=== PATIENT | female | born 1970 | race Caucasian/White ===

== ENCOUNTER 2019-09-26 12:48 | Outpatient (CLI) | payer BC, SELFPAY ==
--- NOTE | 2019-09-26 12:56 | MM_ITS ---
WS: [id number] BILATERAL SCREENING DIGITAL MAMMOGRAM WITH CAD HISTORY: SCREENING COMPARISON: 08/31/2018, 07/25/2016, 02/18/2010. Bilateral CC and MLO views submitted. Computer aided detection analyzed. Breast composition: There are scattered areas of fibroglandular density. There are 3 asymmetries in t he RIGHT breast which need further evaluation. Central to the nipple on the CC projection is a 6 mm o void nodule which may have been present in 2017 but has increased in size. Irregular asymmetry in the lateral RIGHT breast on the CC projection. There are 2 asymmetries in the superior RIGHT breast on t he MLO. Spot compression views in all these areas are recommended. Biopsy clip central to the LEFT ni pple. RIGHT breast: Spot compression views (CC and MLO). True ML. Ultrasound to follow if abnormality persi sts. MM/[place] [id number] IMPRESSION: BI-RADS: 0-Incomplete: Need additional imaging evaluation FOLLOW UP: Need Additional Imaging
== END 2019-09-26 12:49 | disposition home or self-care (01) ==
LOC: RADSHAW 12:50
PROVIDERS: Visit Provider Nurse Practitioner Family
DX: Z12.31 Encounter for screening mammogram for malignant neoplasm of breast (principal); N64.89 Other specified disorders of breast
CPT/HCPCS: 77067

== ENCOUNTER 2019-12-12 10:26 | Outpatient (CLI) | payer BC, SELFPAY ==
--- NOTE | 2019-12-12 10:45 | US_ITS ---
WS: [id number] ADDITIONAL VIEWS RIGHT BREAST RIGHT breast ultrasound, limited HISTORY: RIGHT breast masses x2. COMPARISON: 09/26/2019, 08/31/2018 and 06/11/2016 Compression views right CC and MLO projection. True ML also submitted. Lobulated 6 mm nodule at a middle depth RIGHT breast is probably near the 12-1 o'clock axis. Persists with additional imaging. The asymmetry in the upper outer quadrant also persists but is less masslik e. May be a benign asymmetry. RIGHT breast ultrasound, limited. At 10:00 there is a hypoechoic nodule measuring 6 x 2 x 3 mm without increased vascularity. This nodu le is slightly ovoid in shape and corresponds to the mammographic abnormality. At 12:00 there is an ill-defined hypoechoic nodule measuring 5 x 3 x 5 mm. Margins are slightly irreg ular. This corresponds to the mammographic abnormality. These nodules are very small and indeterminant. As neither of these were definitely present on prior studies from 2012 additional evaluation is recommended. Ultrasound-guided biopsy recommended of the 10:00 and 12:00 hypoechoic areas in the RIGHT breast. Low level suspicion but neither of these areas were present in 2012. US/US breast RT limited* [id number] IMPRESSION: BI-RADS: 4-Suspicious Finding-Biopsy Should Be Considered FOLLOW-UP: Biopsy Recommended
== END 2019-12-12 10:27 | disposition home or self-care (01) ==
PROVIDERS: Visit Provider Nurse Practitioner Family
DX: N64.89 Other specified disorders of breast (principal); N63.11 Unspecified lump in the right breast, upper outer quadrant
CPT/HCPCS: 76642; 77065

== ENCOUNTER 2021-03-12 09:43 | Outpatient (CLI) | payer BC, SELFPAY ==
--- NOTE | 2021-03-12 09:53 | MM_ITS ---
WS: [id number] BILATERAL DIGITAL SCREENING MAMMOGRAPHY WITH CAD CLINICAL INFORMATION: SCREENING HISTORY: Screening mammogram. No current complaints. COMPARISON: September 26, 2019 TECHNIQUE: Bilateral CC and MLO views. FINDINGS: Scattered fibroglandular densities bilaterally. Previously described asymmetries in the right breast are persistent but less prominent today. Small nodules in these areas were described on the prior ult rasound at 10:00 and 12:00. Biopsy was previously recommended. Recommend right diagnostic mammography and ultrasound for comparison to December 12, 2019 Biopsy clip left breast with adjacent stable focal asymmetry. Left breast is unchanged. MM/[place] [id number] IMPRESSION: BI-RADS: 0-Incomplete: Need additional imaging evaluation FOLLOW UP: Need Additional Imaging RECOMMENDATION RIGHT DIAGNOSTIC MAMMOGRAPHY AND ULTRASOUND
== END 2021-03-12 09:44 | disposition home or self-care (01) ==
LOC: RADSHAW 09:48
PROVIDERS: PCP Nurse Practitioner Family; Visit Provider Nurse Practitioner Family
DX: Z12.31 Encounter for screening mammogram for malignant neoplasm of breast (principal)
CPT/HCPCS: 77067

== ENCOUNTER 2021-05-08 13:23 | Outpatient (CLI) | payer BC, SELFPAY ==
--- NOTE | 2021-05-08 13:30 | US_ITS ---
WS: [id number] RIGHT DIGITAL MAMMOGRAPHY WITH CAD CLINICAL INFORMATION: RT BREAST ASYMMETRY X 2 COMPARISON: March 12, 2021 and December 12, 2019 TECHNIQUE: 3 views of the right breast were obtained. FINDINGS: Scattered fibroglandular densities of the right breast. Previously described asymmetries in the right breast are again seen similar to the prior examination. ULTRASOUND BREAST RIGHT TECHNIQUE: Ultrasound right breast focused area of concern. CLINICAL INFORMATION: RT BREAST ASYMMETRY X 2 FINDINGS: Ultrasound right breast at 10:00 position. This hypoechoic nodule is stable in appearance compared to December 12, 2019. This measures approximately 2.4 x 2.2 x 3.6 mm. Previously described lesion at the 12:00 position is not visualized today. US/US breast RT limited* [id number] IMPRESSION: BI-RADS: 3-Probably Benign FOLLOW UP: 6 Month Follow-up RECOMMEND 6 MONTH FOLLOW-UP RIGHT DIAGNOSTIC MAMMOGRAPHY AND ULTRASOUND TO CONF IRM STABILITY.
== END 2021-05-08 13:24 | disposition home or self-care (01) ==
LOC: RADSHAW 13:28
PROVIDERS: PCP Nurse Practitioner Family; Visit Provider Nurse Practitioner Family
DX: N64.89 Other specified disorders of breast (principal); N63.11 Unspecified lump in the right breast, upper outer quadrant
CPT/HCPCS: 76642; 77065

== ENCOUNTER → 2021-11-25 11:41 | Outpatient (BNVA) | payer BC, SELFPAY | PROVIDERS: PCP Nurse Practitioner Family; Visit Provider Obstetrics & Gynecology | DX: N93.9 Abnormal uterine and vaginal bleeding, unspecified (principal) | CPT/HCPCS: 82306; 82728; 83001; 83002; 84439; 84443; 84480; 84481; 84482; 85025; 86376; 86800 ==

== ENCOUNTER 2022-08-22 13:33 | Outpatient (CLI) | payer OTHER, SELFPAY ==
--- NOTE | 2022-08-22 13:47 | MM_ITS ---
WS: [id number] BILATERAL 3D TOMOSYNTHESIS DIGITAL DIAGNOSTIC MAMMOGRAPHY WITH CAD CLINICAL INFORMATION: 6MFU HISTORY: Six-month follow-up COMPARISON: May 08, 2021 March 12, 2021 TECHNIQUE: Bilateral CC, MLO, and ML views. FINDINGS: Scattered fibroglandular densities bilaterally. Previously described asymmetry is in the RIGHT breast are similar in appearance to previous. No new suspicious findings. LEFT breast is unremarkable. Stable LEFT breast biopsy marker. Ultrasound RIGHT breast described below. ULTRASOUND BREAST RIGHT TECHNIQUE: Ultrasound right breast focused area of concern. CLINICAL INFORMATION: 6MFU COMPARISON: 2021 FINDINGS: Ultrasound RIGHT breast the 10:00 position also including the upper outer quadrant. No evidence of cy stic or solid mass. No suspicious lesions visualized today. Previously described small hypoechoic les ion is no longer visualized. Recommend return to annual screening mammography. MM/[place] [id number] IMPRESSION: BI-RADS: 2-Benign FOLLOW UP: 1 Year Follow-up Recommend return to annual screening mammography.
== END 2022-08-22 13:34 | disposition home or self-care (01) ==
PROVIDERS: PCP Nurse Practitioner Family; Visit Provider Nurse Practitioner Women's Health
DX: R92.8 Other abnormal and inconclusive findings on diagnostic imaging of breast (principal)
CPT/HCPCS: 76642; 77062; G0279

== ENCOUNTER 2023-08-24 11:57 | Outpatient (CLI) | payer OTHER, SELFPAY ==
--- NOTE | 2023-08-24 12:13 | MM_ITS ---
WS: [id number] BILATERAL 3D TOMOSYNTHESIS DIGITAL SCREENING MAMMOGRAPHY WITH CAD CLINICAL INFORMATION: SCREENING HISTORY: Screening mammogram. No current complaints. COMPARISON: 2022 TECHNIQUE: Bilateral CC and MLO views. FINDINGS: Scattered fibroglandular densities bilaterally. No suspicious focal mass, asymmetry, calcifications, or architectural distortion. No evidence of malignancy. Biopsy clip LEFT breast MM/[place] [id number] IMPRESSION: BI-RADS: 2-Benign FOLLOW UP: 1 Year Follow-up Recommend return to annual screening mammography.
== END 2023-08-24 11:58 | disposition home or self-care (01) ==
LOC: RAD 11:57
PROVIDERS: PCP Nurse Practitioner Family; Visit Provider Nurse Practitioner Family
DX: Z12.31 Encounter for screening mammogram for malignant neoplasm of breast (principal)
CPT/HCPCS: 77063; 77067

== ENCOUNTER 2024-10-31 13:12 | Outpatient (CLI) | payer OTHER, SELFPAY ==
--- NOTE | 2024-10-31 13:16 | MM_ITS ---
WS: [id number] BILATERAL 3D TOMOSYNTHESIS DIGITAL SCREENING MAMMOGRAPHY WITH CAD CLINICAL INFORMATION: SCREENING HISTORY: Screening mammogram. No current complaints. COMPARISON: 2023 TECHNIQUE: Bilateral CC and MLO views. FINDINGS: Scattered fibroglandular densities bilaterally. No suspicious focal mass, asymmetry, calcifications, or architectural distortion. No evidence of malignancy. Biopsy clip LEFT breast MM/MM scr BI tomosynthesis [id number] IMPRESSION: DENSITY: There are scattered areas of fibroglandular density. BI-RADS: 2 - Benign. FOLLOW UP: 1 Year Follow-up Recommend return to annual screening mammography.
== END 2024-10-31 13:13 | disposition home or self-care (01) ==
LOC: RAD 13:13
PROVIDERS: PCP Nurse Practitioner Family; Visit Provider Nurse Practitioner Family
DX: Z12.31 Encounter for screening mammogram for malignant neoplasm of breast (principal); R92.323 Mammographic fibroglandular density, bilateral breasts; Z97.8 Presence of other specified devices
CPT/HCPCS: 77063; 77067

== ENCOUNTER 2025-03-27 17:47 | Emergency (ER) | payer OTHER, SELFPAY ==
[2025-03-27 17:51] VITALS: BP 98/73; PULSE 86; TEMP 36.6; O2SAT 98; BMI 26.6
--- NOTE | 2025-03-27 19:41 | ED_ITS ---
HPI - Skin/Abscess/Foreign Bdy General: Chief complaint: Skin/Abscess/Foreign Body Stated complaint: had stitches removed today, incision is opening up Time Seen by Provider: 03/27/25 19:37 Source: patient Mode of arrival: ambulatory Limitations: no limitations History of Present Illness: Patient is a 54-year-old female presents to ED today with a complaint of wound dehiscence. Patient states a few weeks ago she had a melanoma spot removed by Dr. Mixon at the [facility] in [facility]. Patient states she had her follow-up appointment today and had her sutures removed. Patient states later this evening she noticed that the wound dehisced. She states the area has otherwise been healing well and has not noticed any surrounding redness, warmth, discharge. MD complaint: other (Wound dehiscence) Onset (ago): hour(s) Tetanus up to date: yes Location: buttocks Severity: mild Relieving factors: none Exacerbating factors: none Associated symptoms: Reports no associated symptoms Treatments prior to arrival: none Related Data Previous Rx's ?Medication ?Instructions ?Recorded amoxicillin 875 mg-potassium 1 tab PO BID #10 tabs 12/12 clavulanate 125 mg tablet Allergies Allergy/AdvReac Type Severity Reaction Status Date / Time No Known Allergies Allergy Verified 03/27/25 17:58 Review of Systems Skin/Breast: Reports: other (wound dehiscence to left hip/buttock wound) Physical Exam Skin: NARRATIVE SKIN EXAM: Wound dehiscence noted to left hip/buttock wound. Wound dehiscence primarily affects the middle portion of the wound but does affect approximately 70% of the total wound. Procedures Laceration Laceration 1: Site: lower extremity Side (If applicable): left Size (cm): 3.0 Description: linear Depth: simple, single layer Local Anesthetic: lidocaine 1% and with epi Amount of anesthesia used (mL): 5.0 Pre-repair: wound explored and irrigated extensively Skin layer closed with: nylon Size (cm): 4-0 Number of sutures: 7 Technique: simple, interrupted Course Consultations: Consultation #1: Spoke to patient's surgeon Dr. Mixon who recommends thorough cleaning with betadine and can replace interrupted nylon sutures. Prophylactic antibiotics with Augmentin for 5 days. She will have her office reach out to patient tomorrow. Vital Signs: Vital signs: Vital Signs Temperature 97.8 F 03/27/25 17:51 Pulse Rate 83 03/27/25 20:30 Blood Pressure 104/59 03/27/25 20:30 Pulse Oximetry 95 03/27/25 20:30 Oxygen Delivery Me thod Room Air 03/27/25 20:17 MDM - Skin/Abscess/Foreign Bdy Medicial Decision Making Patient here for wound dehiscence that occurred after she had sutures removed by her surgeon this morning after they removed a melanoma spot near her left hip/buttock. I did speak to her surgeon who recommended thorough cleaning, replacing sutures, and placing her on prophylactic antibiotics. Medical Records I reviewed the patient's medical records. No radiology studies performed this visit Discharge Plan Discharge Patient Disposition: Home Clinical Impression: Dehiscence of wound Condition: Stable Prescriptions: New amoxicillin-pot clavulanate 875-125 mg tablet 1 tab PO BID Qty: 10 0RF Discharge Orders: Discharge ED (Routine); Ordered 03/27/25 Ordered By: Rosemary El Referrals: Theresa Joiner FNP [Primary Care Provider, Unknown] Patient Instructions: Patient Portal & Manisha Instructions Activity Restrictions/Additional Instructions: As we discussed, surgeon said their office would reach out to you tomorrow morning to set you up with a follow-up appointment. Please fill your antibiotics tomorrow and take them as directed. Monitor wound for redness, worsening pain, surrounding warmth, discharge, or any other concerns you may have. Please seek medical reevaluation if these occur. Print Language: South African Coding Level of Care Code ED National Sales Manager for Zaina Ramsey
[2025-03-27 20:17] VITALS: BP 105/53; PULSE 77; O2SAT 97
[2025-03-27] MEDS: lidocaine-epi 1% 20 mL INJ INJECTION (20:23)
[2025-03-27 20:30] VITALS: BP 104/59; PULSE 83; O2SAT 95
[2025-03-27 20:49] VITALS: BP 100/66; PULSE 82; O2SAT 95
--- OUTSIDE RECORDS SUMMARY | 2025-03-27 21:33 | XMS_ITS | Clinical Summary ---
Author Organization [facility] Address [address] [place] [address] Care Team Providers Care Color Print Inspector Name Role Phone Chantel Hampton DO Primary Care Provider Allergies No known active allergies Medications ferrous sulfate 325 mg (65 mg iron) tabletIndicatio ns:Iron deficiency anemia due to chronic blood loss Take 1 Tablet (325 mg) by mouth daily. 90 Tablet 4 07/15/2021 Active phentermine (ADIPEX P) 37.5 mg tabletIndicatio ns:Weight gain Take 1 Tablet (37.5 mg) by mouth daily before breakfast. 30 Tablet 2 07/15/2021 Active ergocalciferol (VITAMIN D2) 50,000 unit capsuleIndicati ons:Vitamin D deficiency TAKE 1 TAB WEEKLY FOR 8 WEEKS THEN TAKE TWICE MONTHLY AFTER THAT. 2 Capsule 10/02/2022 Active Active Problems No known active problems Family History Medical History Relation Name Comments Diabetes Sister sister Relation Name Status Comments Brother Alive Daughter Alive Father Alive Mother Alive Sister sister Alive Son 1 Alive Son 2 Alive Social History Tobacco Use Types Packs/Day Years Used Date Smoking Tobacco: Light Smoker Cigarettes 0 Last attempted t o quit: 04/20/2010 Smokeless Tobacco: Never Alcohol Use Standard Drinks/Week Comments Yes 1 (1 standard drink = 0.6 oz pur e alcohol) Comments Unknown Sex and Gender Information Value Date Recorded Sex Assigned at Not on file 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 Gender Identity Not on file Sexual Orientation Not on file Last Filed Vital Signs Vital Sign Reading Time Taken Comments Blood Pressure 118/70 07/09/2021 1:03 PM CDT Pulse 106 07/09/2021 1:03 PM CDT Temperature 36.7 C (98 F) 07/09/2021 1:03 PM CDT Respiratory Rate 16 08/31/2017 1:05 PM CDT Oxygen Saturation 95% 07/09/2021 1:03 PM CDT Inhaled Oxygen Concentration - - Weight 90.3 kg (199 lb 2 oz) 07/09/2021 1:03 PM CDT Height 170.2 cm (5' 7 ) 07/09/2021 1:03 PM CDT s tated Body Mass Index 31.19 07/09/2021 1:03 PM CDT Plan of Treatment Health Maintenance Due Date Last Done Comments DTAP/TDAP/TD VACCINES (1 - Tdap) 1988 HEPATITIS B VACCINES (1 of 3 - 19+ 3-dose series) 03/20 HPV/Cotest (21-29) 1990 CERVICAL CANCER SCREENING 1999 HPV/Cotest (30-65) 1999 PAP SMEAR 1999 BREAST CANCER SCREENING 2009 COLORECTAL SCREENING 2014 FIT/FOBT Q 1 year 2014 Flex Sig/CT Colonography Q 5 years 2014 ZOSTER VACCINE (1 of 2) 2019 Preventative Visit- Commercial 04/20/2024 07/09/2021 Colorectal Cancer Screening 07/20/2024 FIT-DNA Q 3 years 07/20/2024 07/20/2021 INFLUENZA VACCINE (#1) 2024 Procedures Procedure Name Priority Date/Time Associated Diagnosis Comments COLON CANCER SCREEN, STOOL DNA Routine 07/20/2021 2:00 PM CDT Screening for colon cancer from Last 3 Months or Most Recently Relevant to Health Maintenance Results * COLON CANCER SCREEN, STOOL DNA (07/20/2021 2:00 PM CDT) COLOGUARD RESULT Negative Negative [email or web address] Comment: NEGATIVE TEST RESULT. A negative Cologuard result indicates a low likelihood that a colorectal cancer (CRC) or advanced adenoma (adenomatous polyps with more advanced pre-malignant features) is present. The chance that a person with a negative Cologuard test has a colorectal cancer is less than 1 in 1500 (negative predictive value >99.9%) or has an advanced adenoma is less than 5.3% (negative predictive value 94.7%). These data are based on a prospective cross-sectional study of 10,000 individuals at average risk for colorectal cancer who were screened with both Cologuard and colonoscopy. (Avani Pak al, N Engl J Med 2014;370(14):5994-6799) The normal value (reference range) for this assay is negative. COLOGUARD RE-SCREENING RECOMMENDATION: Periodic colorectal cancer screening is an important part of preventive healthcare for asymptomatic individuals at average risk for colorectal cancer. Following a negative Cologuard result, the British Cancer Society and U.S. Multi-Society Task Force screening guidelines recommend a Cologuard re-screening interval of 3 years. References: British Cancer Society Guideline for Colorectal Cancer Screening: https://www.cancer.org/cancer/xbvvt-tcdlxa-ehleha/ktnpntowb-ulgomzpmh-lgxsipu/ac s-rec ommendations.html.; Giorgio LOPEZ, Shon GARVIN, Annita ThompsonK, Colorectal Cancer Screening: Recommendations for Physicians and Patients from the U.S. Multi-Society Task Force on Colorectal Cancer Screening , Am J Gastroenterology 2017; 112:5696-1977. TEST DESCRIPTION: Composite algorithmic analysis of stool DNA-biomarkers with hemoglobin immunoassay. Quantitative values of individual biomarkers are not reportable and are not associated with individual biomarker result reference ranges. Cologuard is intended for colorectal cancer screening of adults of either sex, 45 years or older, who are at average-risk for colorectal cancer (CRC). Cologuard has been approved for use by the U.S. FDA. The performance of Cologuard was established in a cross sectional study of average-risk adults aged 50-84. Cologuard performance in patients ages 45 to 49 years was estimated by sub-group analysis of near-age groups. Colonoscopies performed for a positive result may find as the most clinically significant lesion: colorectal cancer [4.0%], advanced adenoma (including sessile serrated polyps greater than or equal to 1cm diameter) [20%] or non- advanced adenoma [31%]; or no colorectal neoplasia [45%]. These estimates are derived from a prospective cross-sectional screening study of 10,000 individuals at average risk for colorectal cancer who were screened with both Cologuard and colonoscopy. (Avani Pak al, N Engl J Med 2014;370(14):0155-5860.) Cologuard may produce a false negative or false positive result (no colorectal cancer or precancerous polyp present at colonoscopy follow up). A negative Cologuard test result does not guarantee the absence of CRC or advanced adenoma (pre-cancer). The current Cologuard screening interval is every 3 years. (British Cancer Society and U.S. Multi-Society Task Force). Cologuard performance data in a 10,000 patient pivotal study using colonoscopy as the reference method can be accessed at the following location: www.[employer]/results. Additional description of the Cologuard test process, warnings and precautions can be found at www.[employer]ka.com. Stool STOOL SPECIMEN / Unknown 07/20/2021 2:00 PM CDT 07/22/2021 12:16 AM CDT Tika Barrera AUTOMOBILE AND PROPERTY UNDERWRITER BODY FLUIDS AND STOOLS Final Result [facility] CLIA # [id number] [address], [address] [place] [address] from Last 3 Months or Most Recently Relevant to Health Maintenance Insurance [id number] BLUE ACCESS/TRUE BLUE PPO Care Teams Color Print Inspector Relationship Specialty Start Date End Date Chantel Hampton DO [address] [place] [phone] PCP - General Family Practice 07/31/17
--- OUTSIDE RECORDS SUMMARY | 2025-03-27 21:33 | XMS_ITS | Encounter Summary ---
Author Organization [facility] Address [address] [place] [address] Care Team Providers Care Garbage Stoker Name Role Phone Chantel Hampton DO Primary Care Provider [phone] Encounter Details Date Type Department Care Team (Late st Contact Info) Description 09/14/2002 Outpatient Historical [facility] Dermatology- [place] [address] [place] [phone] Daniel Murillo MD [address] [place] [address] BENIGN MATT SKIN FACE NEC (Primary Dx) Social History Tobacco Use Types Packs/Day Years Used Date Smoking Tobacco: Never Assessed Comments Unknown Sex and Gender Information Value Date Recorded Sex Assigned at Not on file 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
--- OUTSIDE RECORDS SUMMARY | 2025-03-27 21:33 | XMS_ITS | Encounter Summary ---
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
--- OUTSIDE RECORDS SUMMARY | 2025-03-27 21:33 | XMS_ITS | Encounter Summary ---
Author Organization [facility] Address [address] [place] [address] Care Team Providers Care Advertising Sales Consultant Name Role Phone Chantel Hampton DO Primary Care Provider [phone] Encounter Details Date Type Department Care Team (Latest Contact Info) Description 08/14/2000 Outpatient Historical [facility] Dermatology- [facility] [place] [address] [place] [phone] Vel Travis MD NO ADDRESS ON FILE Other and unspecified capillary diseases (Primary Dx) Social History Tobacco Use Types Packs/Day Years Used Date Smoking Tobacco: Never Assessed Comments Unknown Sex and Gender Information Value Date Recorded Sex Assigned at Not on file 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
--- OUTSIDE RECORDS SUMMARY | 2025-03-27 21:33 | XMS_ITS | Clinical Summary ---
Author Organization [facility] Address [address] [place] [address] Care Team Providers Care Maintenance Mechanic Telephone Name Role Phone Chantel Hampton Primary Care Provider Allergies No known active allergies Medications phentermine (ADIPEX P) 37.5 mg tabletIndicati ons:Weight gain Take 1 Tablet (37.5 mg) by mouth daily before breakfast. 30 Tablet 1 1 Active ergocalciferol (Vitamin D2) 50,000 unit capsuleIndicat ions:Vitamin D deficiency Take 1 Capsule (50,000 Units) by mouth see administration instructions. Take 1 tab weekly x 8 weeks then take twice monthly after that. 16 Capsule 2 1 Active ferrous sulfate 325 mg (65 mg iron) tabletIndicati ons:Iron deficiency anemia due to chronic blood loss TAKE 1 TABLET BY MOUTH EVERY DAY 90 Tablet 4 1 Active Active Problems No known active problems Family History Medical History Relation Name Comments Diabetes Sister Relation Name Status Comments Brother Alive Daughter Alive Father Alive Mother Alive Sister Alive Son 1 Alive Son 2 Alive Social History Tobacco Use Types Packs/Day Years Used Date Smoking Tobacco: Light Smoker Cigarettes 5 Started: 006; Last attempted to quit: 04/20/2010 Alcohol Use Standard Drinks/Week Comments Yes 0 (1 standard drink = 0.6 oz pur e alcohol) social Comments No Sex and Gender Information Value Date Recorded Sex Assigned at Not on file 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 Gender Identity Not on file Sexual Orientation Not on file Last Filed Vital Signs Vital Sign Reading Time Taken Comments Blood Pressure 112/72 07/23/2020 1:07 PM CDT Pulse 94 07/23/2020 1:07 PM CDT Temperature 37.1 C (98.8 F) 07/23/2020 1:07 PM CDT Respiratory Rate 16 08/31/2017 1:05 PM CDT Oxygen Saturation 98% 07/23/2020 1:07 PM CDT Inhaled Oxygen Concentration - - Weight 90.7 kg (200 lb) 07/23/2020 1:07 PM CDT Height 170.2 cm (5' 7 ) 07/23/2020 1:07 PM CDT Body Mass Index 31.32 07/23/2020 1:07 PM CDT Plan of Treatment Health Maintenance Due Date Last Done Comments DTAP/TDAP/TD VACCINES (1 - Tdap) 1988 HEPATITIS B VACCINES (1 of 3 - 19+ 3-dose series) 03/20 HPV/Cotest (21-29) 1990 CERVICAL CANCER SCREENING 1999 HPV/Cotest (30-65) 1999 PAP SMEAR 1999 BREAST CANCER SCREENING 2009 COLORECTAL SCREENING 2014 Colorectal Cancer Screening 2014 FIT-DNA Q 3 years 2014 FIT/FOBT Q 1 year 2014 Flex Sig/CT Colonography Q 5 years 2014 ZOSTER VACCINE (1 of 2) 2019 Preventative Visit- Commercial 04/20/2024 07/09/2021 INFLUENZA VACCINE (#1) [address] [place] [id number] [employer]VANTAGE Care Teams Maintenance Mechanic Telephone Relationship Specialty Start Date End Date Chantel Hampton DO [address] [place] [address] PCP - General Family Practice 07/31/17
--- OUTSIDE RECORDS SUMMARY | 2025-03-27 21:33 | XMS_ITS | Encounter Summary ---
Author Organization [facility] Address [address] [place] [address] Care Team Providers Care Carpenter Name Role Phone Chantel Hampton DO Primary Care Provider [phone] Encounter Details Date Type Department Care Team (Late st Contact Info) Description 09/14/2002 Outpatient Historical [facility] [address] [place] [id number] Daniel Murillo MD [address] [place] [address] BENIGN MATT SKIN FACE NEC (Primary Dx) Social History Tobacco Use Types Packs/Day Years Used Date Smoking Tobacco: Never Assessed Comments Unknown Sex and Gender Information Value Date Recorded Sex Assigned at Not on file Legal Sex Female 3:48 AM [employer] Gender Identity Not on file Sexual Orientation Not on file documented as of this encounter Plan of Treatment Not on file documented as of this encounter Visit Diagnoses Diagnosis Benign neoplasm of skin of other and unspecified parts of face- Primary documented in this encounter Care Teams Carpenter Relationship Specialty Start Date End Date Chantel Hampton DO [address] [place] [id number] PCP - General Family Practice 07/31/17 documented as of this encounter
== END 2025-03-27 20:57 | disposition home or self-care (01) ==
PROVIDERS: Emergency Provider Physician Assistant; PCP Nurse Practitioner Family
DX: T81.30XA Disruption of wound, unspecified, initial encounter (principal); Z85.828 Personal history of other malignant neoplasm of skin; Z98.890 Other specified postprocedural states
CPT/HCPCS: 12002; 99283; J9999